=== PATIENT | female | born 1970 | race American Indian/Alaskan Native ===

== ENCOUNTER 2018-08-09 09:58 | Outpatient (CLI) | payer BC ==
--- NOTE | 2018-08-09 15:54 | Mammography Report ---
BILATERAL DIGITAL SCREENING MAMMOGRAM with CAD: 08/09/18 09:58:00 CLINICAL: Routine screening. COMPARISON:04/02/15 FINDINGS: The breasts are heterogeneously dense, which may obscure small masses. A left asymmetry on the CC view requires additional imaging.No architectural distortion or suspicious calcifications.The right breast is negative. IMPRESSION: Left asymmetry requiring further workup. BI-RADS CATEGORY: 0 -- Additional Imaging Evaluation Required RECOMMENDATION: Recall for left mediolateral, rolled CC and spot magnification CC views and left breast ultrasound if needed. ACR BI-RADS MAMMOGRAPHIC CODES: 0 = Needs additional imaging evaluation; 1 = Negative; 2 = Benign; 3 = Probably benign; 4 = Suspicious; 5 = Malignant; 6 = Known biopsy-proven malignancy COMMENT: 1. Dense breast tissue, i.e., adenosis, fibrocystic changes, etc., may obscure an underlying neoplasm. 2. Approximately 10% of cancers are not detected with mammography. 3. A negative mammography report should not delay biopsy if a clinically suspicious mass is present. COMMENT: Patient follow-up letters are generated via our [employer] application.
== END 2018-08-09 09:59 | disposition home or self-care (01) ==
LOC: SPVWC 09:58
PROVIDERS: ATTEND Family Medicine
DX: Z12.31 Encounter for screening mammogram for malignant neoplasm of breast (principal)
CPT/HCPCS: 77067

== ENCOUNTER 2019-09-19 10:04 | Outpatient (CLI) | payer BC ==
--- NOTE | 2019-09-22 11:51 | Mammography Report ---
DIGITAL SCREENING MAMMOGRAM WITH CAD, 09/19/2019 INDICATION: Routine screening mammography. TECHNIQUE: Digital bilateral 2D mammography was obtained in the craniocaudal and mediolateral obliq ue projections. This examination was interpreted with the benefit of Computer-Aided Detection analysi s. COMPARISON: 08/09/2018 and mammograms going back to 10/03/2013 FINDINGS: Breast Density: The breasts are heterogeneously dense, which may obscure small masses. Right asymmetries on both views require additional imaging. No architectural distortion or suspicious calcifications of the right breast. There is no evidence of dominant mass, suspicious calcifications or architectural distortion in the left breast. IMPRESSION: Right asymmetries requiring additional imaging. Recommend recall for right lateral and sp ot compression MLO and CC views and right breast ultrasound if needed. Follow up recommendation: Special View: Spot Category 0: Incomplete. Needs additional imaging evaluation and/or prior mammograms for comparison. A "normal" or negative report should not discourage follow up or biopsy of a clinically significant f inding. A written summary of these findings will be mailed to the patient. The patient will be entered into a mammography reporting system which will generate a reminder letter for the patient's next appointmen t at the appropriate interval. [employer] recommends yearly mammograms starting at age 40 and continuing as l rachel as a woman is in good health. Breast MRI is recommended for women with an approximate 20-25% or greater lifetime risk of breast cancer, including women with a strong family history of breast or ova jennifer cancer or who have been treated for Hodgkin's disease. Signer Name: Heladio Morales MD Signed: 09/22/2019 11:47 AM Workstation Name: [id number]
== END 2019-09-19 10:05 | disposition home or self-care (01) ==
LOC: SPVWC 10:04
PROVIDERS: ATTEND Family Medicine
DX: Z12.31 Encounter for screening mammogram for malignant neoplasm of breast (principal)
CPT/HCPCS: 77067